=== PATIENT | male | born 1950 | race Hispanic/Latino ===

== ENCOUNTER 2022-06-04 10:12 | Emergency (ER) | payer SELFPAY ==
[2022-06-04 11:07] LABS: INR-International Normal Ratio 1.1; PTT 28.9 sec (22.9-36.1); Prothrombin Time 14.4 sec (12.0-14.7)
[2022-06-04 11:09] LABS: #Basophils 0.1 thou/uL (0.0-0.2); #Eosinphils 0.2 thou/uL (0.0-0.7); #Lymphocytes 2.2 thou/uL (1.20-3.40); #Monocytes 0.8 thou/uL (0.11-0.59); %Eosinophils 1.9 % (0.0-10.0); %Lymphocytes 26.9 % (21.0-51.0); %Monocytes 9.5 % (0.0-10.0); %Neutrophils 60.7 % (42.0-75.0); Hemoglobin 12.8 g/dL (14.0-18.0); Mean Corpuscular HGB CONC 32.7 g/dL (32.0-36.0); Mean Corpuscular Hemoglobin 30.7 pg (27.0-31.0); Mean Corpuscular Volume 93.7 fL (78.0-98.0); Mean Platelet Volume 8.1 fL (7.4-10.4); Platelet Count 231 thou/uL (130-400); RBC Distribution Width 11.4 % (11.5-14.5); Red Blood Cell (RBC) Count 4.18 mill/uL (4.70-6.10); White Blood Cell (WBC) Count 8.3 thou/uL (4.8-10.8)
[2022-06-04 11:10] LABS: ALT (SGPT) 26 U/L (8-55); AST (SGOT) 29 U/L (5-34); Albumin 3.8 g/dL (3.4-4.8); Alkaline Phosphatase 69 U/L (40-110); Anion Gap 16 mmol/L (10-20); BUN (Urea Nitrogen) 24 mg/dL (8.4-25.7); Bilirubin, Total 0.4 mg/dL (0.2-1.2); Calc. Creatinine Clearance 0 mL/min (70-130); Calcium 8.8 mg/dL (7.8-10.44); Carbon Dioxide 23 mmol/L (23-31); Chloride 108 mmol/L (98-107); Estimated GFR 85; Globulin 2.5 g/dL (2.4-3.5); Glucose 125 mg/dL (80-115); Potassium 3.7 mmol/L (3.5-5.1); Protein, Total 6.3 g/dL (5.8-8.1); Sodium 143 mmol/L (136-145)
[2022-06-04] MEDS ORDERED: Oxymetazoline HCl 0.05% (30 ML BOT) ONE (11:15)
[2022-06-04] MEDS ORDERED: Sodium Chloride 0.9% 1,000 ML ONE (12:20)
== END 2022-06-04 17:21 | disposition short-term general hospital (02) ==
LOC: NAV ERS 10:12
DX: R04.0 Epistaxis (principal); I95.9 Hypotension, unspecified
CPT/HCPCS: 36416; 80053; 84484; 85025; 85610; 85730; 93005; 99292; J7050

== ENCOUNTER 2022-06-07 12:49 | Emergency (ER) | payer OTHER ==
[2022-06-07] MEDS ORDERED: Tranexamic Acid 1,000 MG/10 ML VIAL ONE ×2 (13:16→13:27)
[2022-06-07 13:45] LABS: #Basophils 0.1 thou/uL (0.0-0.2); #Eosinphils 0.1 thou/uL (0.0-0.7); #Monocytes 0.4 thou/uL (0.11-0.59); #Neutrophils 2.5 thou/uL (1.40-6.50); %Basophils 1.4 % (0.0-1.0); %Eosinophils 1.7 % (0.0-10.0); %Lymphocytes 24.2 % (21.0-51.0); %Monocytes 8.9 % (0.0-10.0); %Neutrophils 63.8 % (42.0-75.0); Mean Corpuscular HGB CONC 33.1 g/dL (32.0-36.0); Mean Corpuscular Volume 93.6 fL (78.0-98.0); Mean Platelet Volume 9.1 fL (7.4-10.4); Platelet Count 223 thou/uL (130-400); RBC Distribution Width 11.8 % (11.5-14.5); Red Blood Cell (RBC) Count 3.23 mill/uL (4.70-6.10)
[2022-06-07 13:53] LABS: INR-International Normal Ratio 1.1; Prothrombin Time 13.9 sec (12.0-14.7)
[2022-06-07 13:54] LABS: PTT 32.7 sec (22.9-36.1)
[2022-06-07 14:02] LABS: ALT (SGPT) 33 U/L (8-55); AST (SGOT) 36 U/L (5-34); Albumin 4.1 g/dL (3.4-4.8); Alkaline Phosphatase 68 U/L (40-110); Anion Gap 17 mmol/L (10-20); BUN (Urea Nitrogen) 19 mg/dL (8.4-25.7); Bilirubin, Total 0.3 mg/dL (0.2-1.2); Calc. Creatinine Clearance 0 mL/min (70-130); Calcium 8.7 mg/dL (7.8-10.44); Carbon Dioxide 22 mmol/L (23-31); Chloride 106 mmol/L (98-107); Estimated GFR 95; Globulin 2.5 g/dL (2.4-3.5); Glucose 128 mg/dL (80-115); Protein, Total 6.6 g/dL (5.8-8.1); Sodium 141 mmol/L (136-145)
== END 2022-06-07 15:05 | disposition home or self-care (01) ==
LOC: NAV ERS 12:49
DX: R04.0 Epistaxis (principal)
CPT/HCPCS: 80053; 85025; 85610; 85730; 99283

== ENCOUNTER 2022-06-10 00:45 | Emergency (ER) | payer OTHER ==
[2022-06-10] MEDS ORDERED: Tranexamic Acid 1,000 MG/10 ML VIAL ONE (01:09)
[2022-06-10 01:36] LABS: #Basophils 0.1 thou/uL (0.0-0.2); #Eosinphils 0.2 thou/uL (0.0-0.7); #Monocytes 0.6 thou/uL (0.11-0.59); #Neutrophils 3.1 thou/uL (1.40-6.50); %Basophils 1.2 % (0.0-1.0); %Eosinophils 3.1 % (0.0-10.0); %Lymphocytes 20.4 % (21.0-51.0); %Monocytes 11.6 % (0.0-10.0); %Neutrophils 63.7 % (42.0-75.0); Mean Corpuscular HGB CONC 32.4 g/dL (32.0-36.0); Mean Corpuscular Hemoglobin 31.3 pg (27.0-31.0); Mean Corpuscular Volume 96.6 fL (78.0-98.0); Mean Platelet Volume 7.5 fL (7.4-10.4); Platelet Count 234 thou/uL (130-400); RBC Distribution Width 13.2 % (11.5-14.5); Red Blood Cell (RBC) Count 2.57 mill/uL (4.70-6.10); White Blood Cell (WBC) Count 4.9 thou/uL (4.8-10.8)
[2022-06-10 01:43] LABS: INR-International Normal Ratio 1.1; Prothrombin Time 14.2 sec (12.0-14.7)
[2022-06-10 01:46] LABS: Anion Gap 15 mmol/L (10-20); BUN (Urea Nitrogen) 30 mg/dL (8.4-25.7); Calc. Creatinine Clearance 0 mL/min (70-130); Calcium 8.7 mg/dL (7.8-10.44); Carbon Dioxide 26 mmol/L (23-31); Chloride 106 mmol/L (98-107); Estimated GFR 84; Glucose 116 mg/dL (80-115); Potassium 4.4 mmol/L (3.5-5.1); Sodium 143 mmol/L (136-145)
== END 2022-06-10 03:00 | disposition home or self-care (01) ==
LOC: NAV ERS 00:45
DX: R04.0 Epistaxis (principal); D64.9 Anemia, unspecified; Z85.46 Personal history of malignant neoplasm of prostate; I10 Essential (primary) hypertension
CPT/HCPCS: 80048; 85025; 85610; 99283